=== PATIENT | male | born 1985 | race Caucasian/White ===

== ENCOUNTER 2017-04-24 17:51 | Emergency (ER) | payer MEDICAID ==
[~2017-04-24] VITALS: Ht 175.3 cm; Wt 95.3 kg
[2017-04-24 17:51] VITALS: BP_SYST 124
[~2017-04-24 17:51] MED LIST: AMOX875T2; HYDR-1189 PO; IBUP-786 PO
[2017-04-24] MEDS ORDERED: KETOROLAC TROMETHAMINE 30 MG VIAL IM ONE (18:15)
[2017-04-24 19:15] VITALS: BP_SYST 118
== END 2017-04-24 19:15 | disposition home or self-care (01) ==
LOC: SED 17:51
DX: S16.1XXA Strain of muscle, fascia and tendon at neck level, initial encounter (principal); Z79.899 Other long term (current) drug therapy; X58.XXXA Exposure to other specified factors, initial encounter; Y93.89 Activity, other specified; Y92.89 Other specified places as the place of occurrence of the external cause; Y99.8 Other external cause status
CPT/HCPCS: 96372; 99284; J1885

== ENCOUNTER 2018-01-29 09:23 | Emergency (ER) | payer SELFPAY ==
[~2018-01-29] VITALS: Ht 175.3 cm; Wt 93.0 kg
[2018-01-29 09:31] VITALS: BP_SYST 121
[2018-01-29] MEDS ORDERED: KETOROLAC TROMETHAMINE 60 MG/2 ML VIAL IM ONE (10:45)
[2018-01-29 11:00] VITALS: BP_SYST 121
== END 2018-01-29 11:00 | disposition home or self-care (01) ==
LOC: SED 09:23
DX: S46.912A Strain of unspecified muscle, fascia and tendon at shoulder and upper arm level, left arm, initial encounter (principal); E11.9 Type 2 diabetes mellitus without complications; R03.0 Elevated blood-pressure reading, without diagnosis of hypertension; Z88.0 Allergy status to penicillin; Z79.899 Other long term (current) drug therapy; X58.XXXA Exposure to other specified factors, initial encounter; Y93.89 Activity, other specified; Y92.89 Other specified places as the place of occurrence of the external cause; Y99.8 Other external cause status
CPT/HCPCS: 71045; 96372; 99283; J1885

== ENCOUNTER 2022-07-07 20:47 | Emergency (ER) | payer MEDICAID ==
[~2022-07-07 20:47] MED LIST changes: -HYDR-1189 PO; +HYDR-3919 PO
[2022-07-07 21:10] VITALS: BP_SYST 160
[2022-07-07] MEDS ORDERED: KETOROLAC TROMETHAMINE 60 MG/2 ML VIAL IM ONE (21:15)
--- NOTE | 2022-07-07 21:20 | NUR ---
Patient ambulatory to bed 5 for evaluation and treatment
--- NOTE | 2022-07-07 21:28 | NUR ---
Patient arrived to ED 5 for c/o knee scrap, pain. Patient was on roof because there was a leak and 3-4 step noted and he fell in. Scrapes were concerning because patient is diabetic. BS is 129. Dr. Singer at bedside to MSE patient.
--- NOTE | 2022-07-07 21:29 | NUR ---
X-RAY in progress.
[2022-07-07] MEDS ORDERED: DIPHTH,PERTUSS(ACELL),TET VAC 0.5 ML VIAL (Tdap) I.M. ONE (21:45)
[2022-07-07] MEDS ORDERED: BACITRACIN 1 GM OINT TP ONE (21:45)
[2022-07-07] MEDS ORDERED: CLIN-142 PO (21:52)
[2022-07-07] MEDS ORDERED: IBUP-1971 PO (21:52)
--- NOTE | 2022-07-07 22:13 | NUR ---
Patient given written and verbal discharge instructions and verbalizes understanding. ER MD discussed with patient the results and treatment provided. Patient in stable condition. ID arm band removed. IV catheter removed intact and dressing applied, no active bleeding. Rx of meds given. Patient educated on pain management and to follow up with PMD. Opportunity for questions provided and answered. Medication side effect fact sheet provided.
== END 2022-07-07 21:20 | disposition home or self-care (01) ==
LOC: SED 20:47
DX: S83.92XA Sprain of unspecified site of left knee, initial encounter (principal); S80.02XA Contusion of left knee, initial encounter; Z88.0 Allergy status to penicillin; Z79.899 Other long term (current) drug therapy; W01.0XXA Fall on same level from slipping, tripping and stumbling without subsequent striking against object, initial encounter; Y93.89 Activity, other specified; Y92.89 Other specified places as the place of occurrence of the external cause; Y99.8 Other external cause status
CPT/HCPCS: 99284; 82962; 73564; 90715; 96372; 90471; J1885